=== PATIENT | female | born 1985 ===

== ENCOUNTER 2024-01-29 05:49 | Inpatient (IN) | payer OTHER ==
[~2024-01-29] VITALS: Ht 165.1 cm; Wt 81.6 kg
[2024-01-29 05:15] VITALS: BP 136/76
[2024-01-29] MEDS ORDERED: RINGERS SOLUTION,LACTATED 1,000 ML IV SCH (06:00)
[2024-01-29] MEDS ORDERED: MORPHINE SULFATE 4 MG/ML CARTRIDGE IV ONE (06:45)
[2024-01-29 07:05] LABS: HEMATOCRIT 36.8 % (36.0-45.00); HEMOGLOBIN 12.7 g/dL (12.0-15.00); MEAN CELL VOLUME 87.2 fL (80.00-100.00); MEAN CORPUSCULAR HGB CONC 34.4 g/dl (32.0-36.0); PLATELET COUNT 210 K/uL (150-450); RED BLOOD COUNT 4.22 M/uL (4.00-6.00)
[2024-01-29 07:11] VITALS: BP 119/74
[2024-01-29 07:11] LABS: URINE APPEARANCE Cloudy; URINE BILIRRUBIN Negative (NEGATIVE); URINE BLOOD Small; URINE COLOR Dark Yellow; URINE GLUCOSE Negative (NEGATIVE); URINE KETONE 15 (NEGATIVE); URINE LEUKOCYTE Negative; URINE NITRATE Negative; URINE PROTEIN 30 (NEGATIVE); URINE UROBILINOGEN 0.2 E.U./dl
[2024-01-29 07:15] LABS: URINE BACTERIA 2124.2 uL (0.0-1933); URINE EPITHELIAL CELLS 72.7 uL (0.0-38.8); URINE RBC 4.4 uL (0.0-20.8); URINE WBC 27.9 uL (0.0-23.2)
[2024-01-29] MEDS ORDERED: IBUprofen 400 MG TABLET PO PRN (07:30)
[2024-01-29] MEDS ORDERED: CHLORHEXIDINE GLUCONATE 120 ML BOTTLE TP SCH (07:30)
[2024-01-29] MEDS ORDERED: OXYTOCIN 1,000 ML IV SCH (07:30)
[2024-01-29 07:33] LABS: ALBUMIN 3.2 gm/dL (3.4-5.0); BILIRUBIN TOTAL 0.38 mg/dL (0.3-1.2); CALCIUM 9.1 mg/dL (8.5-10.1); CREATININE SERUM 0.5 mg/dL (0.55-1.02); GFR 139.6; GLOBULINA 3.6 G/DL (2.4-3.5); POTASSIUM 4.8 mEq/L (3.5-5.1); TOTAL PROTEIN 6.8 gm/dL (6.4-8.2)
[2024-01-29 07:38] LABS: INR < 0.93; PROTHROMBIN TIME 9.8 SECONDS (9.0-11.5)
[2024-01-29 07:45] LABS: URINE CAST 0.91 uL (0.0-1.40)
[2024-01-29 07:46] LABS: URINE MUCUS MODERATE
[2024-01-29] MEDS ORDERED: SYNTHROID50 MCG (08:24)
[2024-01-29] MEDS ORDERED: PRENATAL TABLE1 EAC4 (08:25)
[2024-01-29 08:37] VITALS: BP 128/66
[2024-01-29] MEDS ORDERED: ERYTHROMYCIN BASE OPHT 1GM EACH TUBE OP ONE (09:00)
[2024-01-29] MEDS ORDERED: LIDOCAINE HCL 1% 10ML VIAL IJ ONE (09:00)
[2024-01-29 10:52] VITALS: BP 118/75
[2024-01-29 16:16] VITALS: BP 120/74
[2024-01-30 00:54] VITALS: BP 130/86
[2024-01-30 05:16] VITALS: BP 129/76
[2024-01-30 06:50] LABS: HEMATOCRIT 31.7 % (36.0-45.00); HEMOGLOBIN 10.9 g/dL (12.0-15.00); MEAN CELL VOLUME 87.2 fL (80.00-100.00); MEAN CORPUSCULAR HEMOGLOBIN 29.9 pg (27.00-32.0); MEAN CORPUSCULAR HGB CONC 34.3 g/dl (32.0-36.0); PLATELET COUNT 188 K/uL (150-450); RED BLOOD COUNT 3.64 M/uL (4.00-6.00); RED CELL DISTRIBUTION WIDTH 14.2 % (11.5-14.5)
[2024-01-30 10:02] VITALS: BP 138/85
[2024-01-30 13:48] VITALS: BP 132/87
[2024-01-30 16:23] VITALS: BP 133/78
[2024-01-31 01:37] VITALS: BP 140/90
[2024-01-31 05:45] VITALS: BP 140/90
[2024-01-31 09:00] VITALS: BP 119/82
[2024-01-31 10:20] LABS: URINE APPEARANCE Clear; URINE BILIRRUBIN Negative (NEGATIVE); URINE BLOOD Large; URINE COLOR Yellow; URINE GLUCOSE Negative (NEGATIVE); URINE KETONE Negative (NEGATIVE); URINE LEUKOCYTE Small; URINE NITRATE Negative; URINE PROTEIN Negative (NEGATIVE); URINE UROBILINOGEN 0.2 E.U./dl
[2024-01-31 10:24] LABS: URINE BACTERIA 381.7 uL (0.0-1933); URINE EPITHELIAL CELLS 11.9 uL (0.0-38.8); URINE RBC 214.8 uL (0.0-20.8); URINE WBC 161.4 uL (0.0-23.2)
[2024-01-31 10:33] LABS: HEMATOCRIT 33.4 % (36.0-45.00); HEMOGLOBIN 11.5 g/dL (12.0-15.00); MEAN CELL VOLUME 88.7 fL (80.00-100.00); MEAN CORPUSCULAR HEMOGLOBIN 30.6 pg (27.00-32.0); MEAN CORPUSCULAR HGB CONC 34.5 g/dl (32.0-36.0); PLATELET COUNT 226 K/uL (150-450); RED BLOOD COUNT 3.77 M/uL (4.00-6.00); RED CELL DISTRIBUTION WIDTH 14.4 % (11.5-14.5)
[2024-01-31 11:35] LABS: ALBUMIN 2.5 gm/dL (3.4-5.0); BILIRUBIN TOTAL 0.29 mg/dL (0.3-1.2); CALCIUM 8.9 mg/dL (8.5-10.1); CREATININE SERUM 0.48 mg/dL (0.55-1.02); GFR 146.34; GLOBULINA 3.1 G/DL (2.4-3.5); POTASSIUM 3.67 mEq/L (3.5-5.1); TOTAL PROTEIN 5.6 gm/dL (6.4-8.2)
== END 2024-01-31 14:11 | disposition home or self-care (01) | DRG 807 ==
LOC: OB/GYN 05:49 → LDR 05:49 → OB/GYN 07:52
PROVIDERS: Obstetrics & Gynecology; ADMIT Obstetrics & Gynecology Maternal & Fetal Medicine; ATTEND Obstetrics & Gynecology Maternal & Fetal Medicine
PROC: 10E0XZZ Delivery of Products of Conception, External Approach (ICD-10-PCS; principal; 2024-01-29)
PROC: 0KQM0ZZ Repair Perineum Muscle, Open Approach (ICD-10-PCS; 2024-01-29)
PROC: 4A1HXCZ Monitoring of Products of Conception, Cardiac Rate, External Approach (ICD-10-PCS; 2024-01-29)
DX: O70.1 Second degree perineal laceration during delivery (principal); Z37.0 Single live birth; Z3A.37 37 weeks gestation of pregnancy; Z20.822 Contact with and (suspected) exposure to COVID-19